=== PATIENT | female | born 1975 | race Hispanic/Latino ===

== ENCOUNTER → 2017-08-07 | Outpatient (CLI) | payer OTHER | END | disposition home or self-care (01) | LOC: RAH 07:36 | PROVIDERS: ATTEND Obstetrics & Gynecology | DX: R92.8 Other abnormal and inconclusive findings on diagnostic imaging of breast (principal); Z98.82 Breast implant status | CPT/HCPCS: 77066 ==

== ENCOUNTER 2018-06-26 11:57 | Emergency (ER) | payer OTHER ==
[2018-06-26 12:51] LABS: APPEARANCE,URINE Clear (CLEAR); BILIRUBIN,URINE Negative (NEGATIVE); COLOR,URINE Yellow (YELLOW); GLUCOSE, URINE (UA) 250 mg/dL (NEGATIVE); KETONES,URINE Negative (NEGATIVE); LEUKOCYTE ESTERASE ,URINE Negative (NEGATIVE); NITRATE,URINE Negative (NEGATIVE); OCCULT BLOOD,URINE Negative (NEGATIVE); PH,URINE 7.5 (5.0-8.0); PROTEIN,URINE Negative (NEGATIVE); UROBILINOGEN,URINE 0.2 mg/dL (0.2-1.0)
[2018-06-26 12:56] LABS: BASOPHILS % (AUTO) 0.2 % (0.0-5.0); EOSINOPHILS % (AUTO) 1.4 % (0.0-8.0); HEMATOCRIT 35.9 % (36-48); LYMPHOCYTES % (AUTO) 14.5 % (21.0-51.0); MEAN CORPUSCULAR HEMOGLOBIN 32.3 pg (27.0-33.0); MEAN CORPUSCULAR HGB CONC 33.8 g/dL (32.0-36.0); MEAN CORPUSCULAR VOLUME 95.4 fL (79-99); MONOCYTES % (AUTO) 7.2 % (3.0-13.0); NEUTROPHILS % (AUTO) 76.7 % (40.0-77.0); PLATELET COUNT (AUTO) 197 K/uL (130-400); RED BLOOD CELL COUNT(AUTO) 3.76 MIL/uL (4.00-5.50); RED CELL DISTRIBUTION WIDTH 13.7 % (11.0-15.5); WHITE BLOOD COUNT (AUTO) 6.5 K/uL (4.8-10.8)
[2018-06-26 13:01] LABS: CREATININE 0.8 mg/dL (0.5-1.5); POTASSIUM 4.1 mmol/L (3.5-5.1)
[2018-06-26 13:02] LABS: INR 1.08 (0.85-1.15); PARTIAL THROMBOPLASTIN TIME 27.1 SEC (26.3-35.5); PROTHROMBIN TIME 11.3 SEC (9.6-11.6)
[2018-06-26 13:05] LABS: BILIRUBIN,TOTAL 0.8 mg/dL (0.2-1.0); TOTAL PROTEIN, SERUM 6.7 g/dL (6.0-8.3)
[2018-06-26 13:48] LABS: RBC,URINE 0-1 /HPF (0-1); WBC,URINE 0-1 /HPF (0-1)
[2018-06-26 13:49] LABS: BACTERIA,URINE Rare /HPF (None Seen); SQUAMOUS EPITHELIAL CELL,UR Few /HPF (0-2)
[2018-06-26] MEDS ORDERED: SODIUM CHLORIDE 0.9% 1000ML 1,000 ML IV ONE (14:21)
[2018-06-26] MEDS ORDERED: ONDANSETRON HCL 4 MG/2 ML VIAL ONE (14:21)
== END 2018-06-26 15:56 | disposition home or self-care (01) ==
LOC: EDH 11:57
DX: I95.9 Hypotension, unspecified (principal); R53.1 Weakness; R42 Dizziness and giddiness; R73.9 Hyperglycemia, unspecified; Z87.891 Personal history of nicotine dependence; Z98.890 Other specified postprocedural states
CPT/HCPCS: 36415; 80053; 81001; 82150; 82550; 83690; 84484; 85025; 85610; 85730; 93005; 96361; 96374; 99284; J2405; J7030

== ENCOUNTER 2019-03-16 12:36 | Emergency (ER) | payer OTHER ==
[2019-03-16 13:15] LABS: APPEARANCE,URINE Clear (CLEAR); BILIRUBIN,URINE Negative (NEGATIVE); COLOR,URINE Yellow (YELLOW); GLUCOSE, URINE (UA) Negative (NEGATIVE); KETONES,URINE Negative (NEGATIVE); LEUKOCYTE ESTERASE ,URINE Moderate (NEGATIVE); NITRATE,URINE Negative (NEGATIVE); OCCULT BLOOD,URINE Negative (NEGATIVE); PH,URINE 5.5 (5.0-8.0); PROTEIN,URINE Negative (NEGATIVE); UROBILINOGEN,URINE 0.2 mg/dL (0.2-1.0)
[2019-03-16 13:24] LABS: AMPHET/METH SCREEN,URINE NEGATIVE (NEGATIVE); BARBITURATE SCREEN, URINE NEGATIVE (NEGATIVE); BENZODIAZEPINES SCREEN,URINE NEGATIVE (NEGATIVE); CANNABINOID SCREEN,URINE NEGATIVE (NEGATIVE); COCAINE SCREEN,URINE NEGATIVE (NEGATIVE); OPIATE SCREEN,URINE NEGATIVE (NEGATIVE); PHENCYCLIDINE SCREEN,URINE NEGATIVE (NEGATIVE)
[2019-03-16 13:25] LABS: BACTERIA,URINE Rare /HPF (None Seen); RBC,URINE 0-1 /HPF (0-1); SQUAMOUS EPITHELIAL CELL,UR Rare /HPF (0-2); WBC,URINE 0-1 /HPF (0-1)
[2019-03-16 13:25] LABS: CREATININE 0.8 mg/dL (0.5-1.5); POTASSIUM 3.8 mmol/L (3.5-5.1)
== END 2019-03-16 14:10 | disposition home or self-care (01) ==
LOC: EDH 12:36
DX: I15.9 Secondary hypertension, unspecified (principal); R00.2 Palpitations; Z90.49 Acquired absence of other specified parts of digestive tract
CPT/HCPCS: 36415; 80048; 80305; 81001; 84484; 93005

== ENCOUNTER 2025-04-02 16:56 | Emergency (ER) | payer SELFPAY ==
[~2025-04-02] VITALS: Ht 154.9 cm; Wt 90.7 kg
[2025-04-02 16:58] VITALS: TEMP 98.2
--- NOTE | 2025-04-02 17:07 | NUR ---
Larissa shetty in [facility] - 04/02/25 at [email or web address] DAN SPOKE TO DR WADE ABOUT PT CONSULT.
--- NOTE | 2025-04-02 17:08 | NUR ---
PT JUST NOW PLACED IN ED BED 9
--- NOTE | 2025-04-02 17:18 | EKG ---
[facility] Test Date: 2025-04-02 Test Time: 17:15:16 Pat Name: GRACE TYSON Department: ED Room: Gender: F [employer]: [id number] 1975 Requested By: MARSHALL ABDI Order Number: [id number] Reading MD: Ulises Han Measurements Intervals Entiat Rate: 87 P: 49 WV: 145 QRS: -2 QRSD: 74 T: -2 QT: 358 QTc: 432 Interpretive Statements Sinus rhythm Anterolateral infarct, old Compared to ECG 03/16/2019 12:47:54 Poor R-wave progression no longer present Myocardial infarct finding still present Electronically Signed On 04-05-2025 13:05:59 [employer] CONSULT[employer] by Ulises Han Please click the below link to view image of tracing.
[2025-04-02] MEDS: diazePAM 2 MG TAB ONE (17:40)
[2025-04-02] MEDS: diazePAM 2 MG TAB PO ONE (17:40)
--- NOTE | 2025-04-02 17:42 | ERN ---
General Chief Complaint: Hypertension Stated Complaint: HYPERTENSION Time Seen by MD: 16:58 Source: patient, family History of Present Illness Initial Comments Patient is a 50-year-old female coming in complaining of elevated blood pressure. She states that she has been evaluated at several emergency rooms was started on medication for anxiety. She states that it is not working because she believes that the medication isn't the right one. Allergies: Uncoded Allergies: DOPAMIN RELATED MED (Adverse Reaction, Unknown, 04/02/25) Past Medical History Past Medical History: Anxiety, Hypertension Past Surgical History: Appendectomy, Surgical History Other: BREAST AUGMENTATION ROS Dictation CONSTITUTIONAL: No chills, no fever, no weakness, no diaphoresis, no malaise. HEAD/FACE: No signs of trauma. EENT: No eye pain, no blurred vision, no tearing, no double vision, no ear pain, no ear discharge, no nose pain, no nasal congestion, no throat pain, no throat swelling, no mouth pain. RESPIRATORY: No cough, no orthopnea, no SOB, no stridor, no wheezing. CARDIOVASCULAR: No chest pain, no edema, no palpitations, no syncope. GASTROINTESTINAL/ABDOMINAL: No abdominal pain, no constipation, no diarrhea, no nausea, no vomiting. GENITOURINARY: No abnormal discharge, no dysuria, no frequent urination, no hematuria. No complaints of pain in the genitals. MUSCULOSKELETAL: No back pain, no gout, no joint pain, no joint swelling, no muscle pain, no muscle stiffness, no neck pain. INTEGUMENTARY: No change in color, no change in hair/nails, no dryness, no lesion, no lumps, no rash. NEUROLOGICAL/PSYCH: No anxiety, not depressed, no emotional problem, no headache, no numbness, no pre-existing deficit, no history of seizures, no tremors, no weakness. HEMATOLOGIC/LYMPHATIC: Not anemic, no history of blood clots, no apparent bleeding, no bruising, glands not swollen. All Systems Negative, Except as Noted. Physical Exam Physical Exam Dictation VITAL SIGNS: Reviewed. GENERAL APPEARANCE: Alert, oriented x3, no acute distress, obese. HEAD AND FACE: Non-traumatic. EYES: PERRL, pink conjunctivas, eyelid no trauma, anterior chamber clear. EARS: Pinnas intact and no signs of trauma or erythema. Ear canals clear and no discharge. TMs no erythema. NOSE: No discharge, no bleeding. OROPHARYNX: Mouth normal, teeth no caries, tongue pink. Pharynx clear, no erythema. Tonsils no exudates, no abscesses noted. Mucous membrane moist. NECK: Supple, non-tender, no thyromegaly, no masses, no JVD, no bruits. BREAST: Deferred. CHEST: No tenderness, no crepitus, no paradoxical movement, no retractions. LUNGS: Clear, well-ventilated, symmetric, no rales, no wheezing, no rhonchi, no stridor, good breath sounds bilaterally. HEART: Regular rate, regular rhythm, no murmur, no gallops. VASCULAR: No peripheral edema. ABDOMEN: Soft, positive bowel sounds, nondistended, no guarding, nontender, no rebound, no masses no hepatomegaly, no splenomegaly, no Brown's sign, no hernias. RECTAL: Deferred. GENITAL: Deferred. NEUROLOGICAL: Normal speech, gross motor function intact, gross sensory function intact. MUSCULOSKELETAL: Neck nontender, full range of motion, back nontender, full range of motion. EXTREMITIES: Nontender, full range of motion. SKIN: Color pink, dry, no turgor, no rash, no lacerations, no abrasions, no contusions. LYMPHATICS: Deferred. Results Laboratory and Microbiology Labs Reviewed?: Yes EKG/XRAY/US/CT/MRI EKG Comment 04/02/2025 time 5:15 p.m. Ventricular rate [address] wave elevation or depression MDM MDM: Differential diagnosis: Anxiety, hypertension, acute stress disorder Rationale: Tests considered and ordered secondary to shared decision making include: Previous outside records reviewed: Old ER visits. Risk of complication and/or morbidity or mortality of patient management: None Medications-Per medication reconciliation Patient is a 50-year-old female coming in to be evaluated for elevated blood pressure. Patient has been evaluated at several emergency room she states that the medication was not working. Patient received 2 mg of Valium her symptoms improved significantly. I did advised her appropriate follow up with the PCP for long-term management of acute stress disorder with a chronic history of anxiety. ED Course Orders Procedure Category Date Status Time Diazepam 2 Mg Tab PHA 04/02/25 Complete (Valium 2 Mg Tab) 17:30 12 Lead Ekg Tracing- EKG 04/02/25 Complete Technical 17:11 Diazepam 2 Mg Tab PHA 04/02/25 Complete (Valium 2 Mg Tab) 17:12 Current Medications Medications (Trade) Dose Ordered Sig/Obed Route PRN Reason Start Time Stop Time Status Last Admin Dose Admin Diazepam (VALium 2 mg Tab) 2 mg ONCE ONCE PO 04/02/25 17:30 04/02/25 17:31 DC Diazepam (VALium 2 mg Tab) 2 mg STK-MED ONCE .ROUTE 04/02/25 17:12 04/02/25 17:12 DC Vital Signs Date Time Temp Pulse Resp B/P (MAP) Pulse Ox O2 Delivery O2 Flow Rate FiO2 04/02/25 16:58 98.2 99 20 174/104 Room Air DX & DISP Disposition: Discharge Departure Impression: Primary Impression: Acute stress disorder Additional Impression: Anxiety Condition: Stable Additional Instructions: FOLLOW-UP WITH PRIMARY CARE PROVIDER IN 1 TO 2 DAYS. TAKE MEDICATIONS DIRECTED HERE IN THE EMERGENCY ROOM. OKAY TO CONTINUE HOME MEDICATIONS UNLESS OTHERWISE DISCUSSED DURING YOUR VISIT IN THE EMERGENCY ROOM TODAY. RETURN TO YOUR NEAREST EMERGENCY ROOM IF SYMPTOMS WORSEN OR IF THERE IS NO IMPROVEMENT. CALL 911 IF YOU NEED IMMEDIATE ASSISTANCE. TAKE TYLENOL [id number] NEEDED AND IF NO CONTRAINDICATIONS ARE PRESENT. INCREASE ORAL HYDRATION. A WO UND CULTURE OR URINE CULTURE WAS ORDERED HERE IN THE EMERGENCY ROOM DEPARTMENT PLEASE FOLLOW-UP WITH PRIMARY CARE PROVIDER AND ADVISE THEM TO GET REPORTS FROM OUR FACILITY. IF YOU HAD ANY LUIS ARMANDO WRAP/SPLINTS THAT WERE APPLIED HERE, PLEASE DO NOT REMOVE THEM UNTIL YOU SEE YOUR PRIMARY CARE OR SPECIALTY. Referrals: Referrals: SELF,REFERRAL (PCP) CHIQUI SIDDIQI MD Time of Disposition: 17:41 MARSHALL ABDI MD Apr 02, 2025 17:41
[2025-04-02 17:58] VITALS: BP 135/79; PULSE 79; RESP 17; O2SAT 97
--- NOTE | 2025-04-02 17:59 | NUR ---
POST MEDICATION, PT STATES SHE FEELS SO MUCH MORE RELAXED AND LESS STRESSED. BP IS DOWN
== END 2025-04-02 18:13 | disposition home or self-care (01) ==
LOC: EDH 16:56
DX: F43.0 Acute stress reaction (principal); F41.9 Anxiety disorder, unspecified; I10 Essential (primary) hypertension; I21.9 Acute myocardial infarction, unspecified; Z90.49 Acquired absence of other specified parts of digestive tract
CPT/HCPCS: 93005; 99283

== ENCOUNTER 2025-04-07 03:58 | Emergency (ER) | payer SELFPAY ==
[~2025-04-07] VITALS: Ht 154.9 cm; Wt 91.6 kg
[2025-04-07 04:51] LABS: IMMATURE GRANULOCYTE ABSOLUTE 0.02 K/uL (0-1); NUCLEATED RED BLOOD CELLS 0.0 % (0.0-0.19); PLATELET COUNT (AUTO) 229 K/uL (130-400); RED BLOOD CELL COUNT(AUTO) 4.48 MIL/uL (4.00-5.50); RED CELL DISTRIBUTION WIDTH 12.5 % (11.0-15.5); WHITE BLOOD COUNT (AUTO) 6.8 K/uL (4.8-10.8)
[2025-04-07 05:01] LABS: CREATININE 0.8 mg/dL (0.5-1.0); GLOMERULAR FILTR. RATE CALC 89.0 mL/min (>90); GLUCOSE,RANDOM 143.0 mg/dL (70-105); SODIUM SERUM 138.0 mmol/L (136-145); UREA NITROGEN, BLOOD 11.0 mg/dL (7-18)
--- NOTE | 2025-04-07 05:01 | ERN ---
ED Note History of Present Illness Stated Complaint: C/O HIGH B/P Chief Complaint: Hypertension Time Seen by MD: 04:32 Dictation: This is a 50-year-old female who presented to the emergency room with complaints of event/episodes of high blood pressure. She stated that for the past few months she has had these surges where she feels extremely flushed and she checks her blood pressure. If it is high she immediately gets to the emergency room. Patient is on lisinopril 10 mg in a.m. and recently atenolol 12.5 mg was added. She also got clonidine as a rescue blood pressure medication. She stated that she had a pharmacogenetic testing done and she is very sensitive to medications and can only take some medications. She has been checking her blood pressure very randomly. She stated she took a Xanax prior to coming to the ER. Her spouse accompanied her No headache blurred vision facial weakness diplopia. No chest pain pressure PND orthopnea. 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 Temperature 97.8 pulse 87 respirations 20 blood pressure 166/94 with a pulse oximetry of 98% on room air Chronic medical problems include hypertension, hypercholesterolemia generalized anxiety and depression, obesity Allergies: Uncoded Allergies: DOPAMIN RELATED MED (Adverse Reaction, Unknown, 04/02/25) Past Medical History Past Medical History: Anxiety, High Cholesterol, Hypertension Surgical History: Appendectomy, Other, Surgical History Other: BREAST AUGMENTATION History: Not Applicable RN Note Reviewed/Agreed w/PFSH: Yes Review of System Dictation Constitutional: Negative for fever,chills, and weight loss Eyes: Negative for injury, pain,redness, and discharge ENT: Negative for injury,pain or swelling Cardiovascular: Negative for chest pain, palpitations, and edema positive for uncontrolled hypertension Respiratory: Negative for shortness of breath, cough, and wheezing, Abdomen/GI: Negative for abdominal pain, nausea, vomiting, diarrhea, and constipation Back: Negative for injury and pain : Negative for injury, bleeding and discharge MS/Extremity: Negative for injury and deformity Skin: Negative for rash, and discoloration Neuro: Negative for headache, weakness, numbness, tingling, and seizure Psych: Negative for suicide ideation, homicidal ideation, and hallucinations Initial Vital Sign VS Vital Signs Date Time Temp Pulse Resp B/P (MAP) Pulse Ox O2 Delivery O2 Flow Rate FiO2 04/07/25 03:59 97.9 87 20 166/94 98 Room Air 04/07/25 04:14 0 21 Physical Exam Dictation General: awake, alert, NAD morbidly obese, tearful Head/Face: Normocephalic, atraumatic Eyes: PERRL, EOMI, vision at baseline ENT: oral cavity clear, TMs clear, no signs of infection Neck: Trachea midline, supple, no nuchal rigidity Cardiovascular: RRR, normal S1/S2, No MRGs, no JVD Respiratory: CTAB, no respiratory distress, No rales or wheezes Abdomen: Soft, non-tender, non-distended, normal bowel sounds, no guarding or rebound. Skin: Warm, dry, normal turgor, no rash MS/Extremity: Pulses equal, no cyanosis, neurovascular intact, FROM Neuro: COAx4, GCS 15, strength 5/5, CN 2-12 intact, normal cerebellar exam, normal gait, Psych: Normal behavior, mood, and affect normal Extremities-trace edema without any palpable cords, Homans sign is negative Results (Laboratory/Radiology) Laboratory/Radiology Laboratory Tests Test 04/07/25 04:44 White Blood Count 6.8 K/uL (4.8-10.8) Red Blood Count 4.48 MIL/uL (4.00-5.50) Hemoglobin 13.7 g/dL (12.0-16.0) Hematocrit 40.6 % (36-48) Mean Corpuscular Volume 90.6 fL (79-99) Mean Corpuscular Hemoglobin 30.6 pg (27.0-33.0) Mean Corpuscular Hemoglobin Concent 33.7 g/dL (32.0-36.0) Red Cell Distribution Width 12.5 % (11.0-15.5) Platelet Count 229 K/uL (130-400) Mean Platelet Volume 9.5 fL (7.5-10.5) Immature Granulocyte % (Auto) 0.3 % (0-1) Neutrophils (%) (Auto) 63.4 % (40.0-77.0) Lymphocytes (%) (Auto) 29.9 % (21.0-51.0) Monocytes (%) (Auto) 6.3 % (3.0-13.0) Eosinophils (%) (Auto) 0.0 % (0.0-8.0) Basophils (%) (Auto) 0.1 % (0.0-5.0) Neutrophils # (Auto) 4.3 K/uL (1.8-7.7) Lymphocytes # (Auto) 2.0 K/uL (1.0-4.8) Monocytes # (Auto) 0.4 K/uL (0.1-1.0) Eosinophils # (Auto) 0.00 K/uL (0.00-0.70) Basophils # (Auto) 0.01 K/uL (0.00-0.20) Absolute Immature Granulocyte (auto 0.02 K/uL (0-1) Nucleated Red Blood Cells 0.0 % (0.0-0.19) Sodium Level 138 mmol/L (136-145) Potassium Level 4.4 mmol/L (3.5-5.1) Chloride Level 102 mmol/L (101-111) Carbon Dioxide Level 25 mmol/L (21-32) Blood Urea Nitrogen 11 mg/dL (7-18) Creatinine 0.8 mg/dL (0.5-1.0) Glomerular Filtration Rate Calc 89 mL/min (>90) Random Glucose 143 mg/dL (70-105) H Total Calcium 8.9 mg/dL (8.5-10.1) Troponin I High Sensitivity 5 ng/L (4-50) Labs Reviewed?: Yes ED Course ED Course Orders Procedure Category Date Status Time Cbc With Differential LAB 04/07/25 Complete 04:37 Basic Metabolic Panel LAB 04/07/25 Complete 04:37 Troponin I High LAB 04/07/25 Complete Sensitivity 04:37 Ondansetron 4mg Inj PHA 04/07/25 Complete (Zofran 4mg Inj) 05:00 Hydralazine 20mg Inj PHA 04/07/25 Complete (Apresoline 20mg In 05:00 Current Medications Medications (Trade) Dose Ordered Sig/Obed Route PRN Reason Start Time Stop Time Status Last Admin Dose Admin Hydralazine HCl (APRESOLine 20MG INJ) 10 mg ONCE ONCE IV 04/07/25 05:00 04/07/25 05:01 DC Ondansetron HCl (zoFRAN 4MG INJ) 4 mg ONCE ONCE IVP 04/07/25 05:00 04/07/25 05:01 DC 04/07/25 04:56 Vital Signs Date Time Temp Pulse Resp B/P (MAP) Pulse Ox O2 Delivery O2 Flow Rate FiO2 04/07/25 06:41 98.8 72 14 130/60 98 Room Air* 0 21 04/07/25 05:15 132/78 04/07/25 05:13 75 14 132/78 99 Room Air* 0 21 04/07/25 04:14 98.8 88 18 175/65 99 Room Air* 0 21 04/07/25 03:59 97.9 87 20 166/94 98 Room Air Medical Decision Making MDM Differential diagnosis: Hypertensive urgency, uncontrolled hypertension, hypertensive emergency, accelerated hypertension, malignant hypertension This is a 50-year-old female who presented to the emergency room with complaints of event/episodes of high blood pressure. She stated that for the past few months she has had these surges where she feels extremely flushed and she checks her blood pressure. If it is high she immediately gets to the emergency room. Patient is on lisinopril 10 mg in a.m. and recently atenolol 12.5 mg was added. She also got clonidine as a rescue blood pressure medication. She stated that she had a pharmacogenetic testing done and she is very sensitive to medications and can only take some medications. She has been checking her blood pressure very randomly. She stated she took a Xanax prior to coming to the ER. Her spouse accompanied her No headache blurred vision facial weakness diplopia. No chest pain pressure PND orthopnea. 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 Temperature 97.8 pulse 87 respirations 20 blood pressure 166/94 with a pulse oximetry of 98% on room air Chronic medical problems include hypertension, hypercholesterolemia generalized anxiety and depression, obesity 5:00 a.m. labs reviewed CBC BNP 7 are within normal limits I had a very long discussion with the patient and explained to her that she may simply be inadequately treated because of her reports of being sensitive to medications. I also educated her on diurnal variation of the blood pressure and Patient has been on alpha and beta margaret. Please see the copy of handwritten educational information and recommendations scanned into the system Patient and her spouse were very appreciative thank you she will follow up with her primary care physician today to discuss with suggestions Rationale: Tests considered and ordered secondary to shared decision making include: Labs Previous outside records reviewed: Old ER visits. Risk of complication and/or morbidity or mortality of patient management: None Medications-Per medication reconciliation Need for hospitalization: Patient does not meet criteria for hospitalization. Need for emergency major/minor surgery: No There are no social concerns with this patient. Prescription drug management Prescriptions will include symptomatic care Patient's prior external medical records from other ER visits were reviewed by me as indicated. Prior testing and results from previous visits were reviewed. Prior tests were taken into account with medical decision making and resource utilization, independent historian/historians were used to obtain complete medical history. I independently interpreted the test that were performed, results were reviewed by me and considered findings on radiology if ordered. Medical management and examination interpretation discussions were had by me with other qualified healthcare professionals as indicated for the patient's care. Problem List Problem List: (1) Uncontrolled hypertension (2) Anxiety with depression DX & DISP Disposition: Discharge Departure Impression: Primary Impression: Uncontrolled hypertension Additional Impression: Anxiety with depression Condition: Stable Additional Instructions: Patient and the caregiver have been informed of all the diagnostic tests and the imaging conducted during the today's visit to the emergency room and has verbalized understanding of the results I have personally reviewed and interpre baljit all diagnostic exams performed here in the ER today as well as the vital signs documented by the nursing staff. The patient is now being discharged to home and should follow up with the primary care physician or the specialist as directed by the ER staff. I made handout for the patient regarding the problems i see and suggested some solutions for her to discuss with her primary care physician. Patient has been to multiple emergency rooms and has been evaluated many many times for uncontrolled hypertension and a feeling of hot flash. Referrals: JOSE REBOLLAR MD (PCP) MUNIRA BERMUDEZ MD Apr 07, 2025 05:01
[2025-04-07 07:30] VITALS: BP 156/60; PULSE 75; RESP 14; TEMP 98.8; O2SAT 97
== END 2025-04-07 07:38 | disposition home or self-care (01) ==
LOC: EDH 03:58
DX: I10 Essential (primary) hypertension (principal); E78.00 Pure hypercholesterolemia, unspecified; F41.8 Other specified anxiety disorders; E66.01 Morbid (severe) obesity due to excess calories; Z90.49 Acquired absence of other specified parts of digestive tract; Z98.890 Other specified postprocedural states; Z68.38 Body mass index [BMI] 38.0-38.9, adult
CPT/HCPCS: 99285; 96374; 84484; 80048; 85025; 36415; J2405